=== PATIENT | female | born 1980 | race Caucasian/White ===

== ENCOUNTER 2020-06-22 12:19 | Emergency (ER) | payer OTHER ==
--- NOTE | 2020-06-22 12:23 | PDOC ---
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 She states that she has noticed that the right side of her mouth was drooping. Denies headache, rash. She states she had bynum's palsy when she was 17, but the symptoms were much more severe. Current symptoms have been improving. No OCP use, no history of blood clots. Past History - Medical History Allergies/Adverse Reactions: Allergies Allergy/AdvReac Type Severity Reaction Status Date / Time No Known Allergies Allergy Unverified 06/22/20 12:22 Home Medications: Ambulatory Orders Oxycodone HCl/Acetaminophen [Percocet 10-325 mg Tablet] 1 each PO TID 06/22/20 Review of Systems - Review of Systems Able to Perform ROS?: Yes Comments:: GENERAL/CONSTITUTIONAL: No fever or chills. No weakness. HEAD, EYES, EARS, NOSE AND THROAT: No change in vision. No ear pain or discharge. No sore throat. +R eye tearing. NEUROLOGIC: No headache, vertigo, loss of consciousness, or change in strength/sensation. ENDOCRINE: No increased thirst. No abnormal weight change. HEMATOLOGIC/LYMPHATIC: No anemia, easy bleeding, or history of blood clots. ALLERGIC/IMMUNOLOGIC: No hives or skin allergy. *Physical Exam - Physical Exam GENERAL: Awake, alert, and fully oriented, in no acute distress HEAD: No signs of trauma EYES: PERRLA, EOMI, sclera anicteric, conjunctiva clear. R eye fluorescein stain- no abnormal uptake. ENT: Auricles normal inspection, hearing grossly normal, nares patent, oropharynx clear without exudates. Moist mucosa NECK: Normal ROM, supple, no lymphadenopathy, JVD, or masses LUNGS: Breath sounds equal, clear to auscultation bilaterally. No wheezes, and no crackles HEART: Regular rate and rhythm, normal S1 and S2, no murmurs, rubs or gallops ABDOMEN: Soft, nontender, normoactive bowel sounds. No guarding, no rebound. No masses EXTREMITIES: Normal range of motion, no edema. No clubbing or cyanosis. No cords, erythema, or tenderness NEUROLOGICAL: Cranial nerves II through XII grossly intact. Normal speech, normal gait. Motor and sensation intact SKIN: Warm, dry, normal turgor, no rashes or lesions noted. Medical Decision Making - Medical Decision Making Pt presented me with a photo of her eyes when her symptoms were worse (they have improved now), and she did appear to have mild asymmetry. Currently, facial nerve function intact. No droop, no ptosis. No rash. Neurologically intact. This may have been bynum's palsy based on her description, but as her symptoms have resolved, will not pursue this further. Counseled her to return to the ER if the symptoms return. Discharge - Discharge Information Problems reviewed: Yes Clinical Impression/Diagnosis: Bynum's palsy Condition: Stable Disposition: HOME - Admission No - Follow up/Referral - Patient Discharge Instructions Patient Printed Discharge Instructions: DI for [place] [facility] - Post Discharge Activity
[2020-06-22] MEDS ORDERED: TETRACAINE 0.5% HCL 0.6ML DROPPER.BOTTLE OD ONE (12:25)
[2020-06-22] MEDS ORDERED: FLUORESCEIN NA 1 EA STRIP OD ONE (12:25)
[2020-06-22 12:32] VITALS: BP 113/65; PULSE 99; TEMP 99; BMI 24.5
[2020-06-22] MEDS ORDERED: FLUORESCEIN NA 1 EA STRIP ONE (12:51)
[2020-06-22] MEDS ORDERED: TETRACAINE 0.5% OPHTH SOLN 2 ML BOTTLE ONE (12:51)
--- OUTSIDE RECORDS SUMMARY | 2020-06-22 14:13 | XMS ---
:1980 [facility] Care Team Providers Name Role Phone HILDA SCHAEFER MD Unavailable Unavailable SILVANO, A MD Unavailable Unavailable SILVANO, A MD Unavailable Unavailable SILVANO, A MD Unavailable Unavailable SILVANO, A MD Unavailable Unavailable SILVANO, A MD Unavailable Unavailable SILVANO, A MD Unavailable Unavailable SILVANO, A MD Unavailable Unavailable SILVANO, A MD Unavailable Unavailable SILVANO, A MD Unavailable Unavailable SILVANO, A MD Unavailable Unavailable SILVANO, A MD Unavailable Unavailable SILVANO, A MD Unavailable Unavailable SILVANO, A MD Unavailable Unavailable SILVANO, A MD Unavailable Unavailable SILVANO, A MD Unavailable Unavailable SILVANO, A MD Unavailable Unavailable SILVANO, A MD Unavailable Unavailable SILVANO, A MD Unavailable Unavailable SILVANO, A MD Unavailable Unavailable SILVANO, A MD Unavailable Unavailable SILVANO, A MD Unavailable Unavailable SILVANO, A MD Unavailable Unavailable RHONDA CANELA Unavailable Unavailable Re-disclosure Warning The records that you are about to access may contain information from federally- assisted alcohol or drug abuse programs. If such information is present, then the following federally mandated warning applies: This information has been disclosed to you from records protected by federal confidentiality rules (42 CFR part 2). The federal rules prohibit you from making any further disclosure of this information unless further disclosure is expressly permitted by the written consent of the person to whom it pertains or as otherwise permitted by 42 CFR part 2. A general authorization for the release of medical or other information is NOT sufficient for this purpose. The Federal rules restrict any use of the information to criminally investigate or prosecute any alcohol or drug abuse patient.The records that you are about to access may contain highly sensitive health information, the redisclosure of which is protected by Article 27-F of the [facility] Public Health law. If you continue you may haveaccess to information: Regarding HIV / AIDS; Provided by facilities licensed or operated by the [facility] Office of Mental Health; or Provided by the [facility] Office for People With Developmental Disabilities. If such information is present, then the following [facility] mandated warning applies: This information has been disclosed to you from confidential records which are protected by state law. State law prohibits you from making any further disclosure of this information without the specific written consent of the person to whom it pertains, or as otherwise permitted by law. Any unauthorized further disclosure in violation of state law may result in a fine or skilled nursing sentence or both. A general authorization for the release of medical or other information is NOT sufficient authorization for further disclosure. Allergies and Adverse Reactions Type Description Substance Reaction Status Data Source(s ) Food allergy No Known Food No Known [facility] Drug allergy No Known Drug [facility] Drug allergy No Known Allergies No Known [facility] Allergies [facility] Care [facility] Encounters Encounter Providers Location Date Indications Data Source(s ) Outpatient Attender: 06/18/2019 M51.26 M96.1 [facility] ROLA, 06:00:00 AM Health Care ZVIAdmitter: [employer] [facility] Reymundo CANELAer: HILDA SCHAEFER MD M51.26 M96.1 Outpatient Attender: ROLA, 04/10/2019 12:00:00 M51.26 [facility] ZVIAdmitter: HILARY CANELA [facility] ZVIReferrer: HILDA SCHAEFER MD M51.26 Insurance Providers Payer name Policy type Policy ID Covered Covered alliance party's Policy P guido / Coverage alliance party ID relationship to [place] Inf ormation type dyer MEDICARE [id number] SP [id number] SELF PAY SP INSURANCE Problems, Conditions, and Diagnoses Code Display Name Description Problem Type Effective Data Sour ce(s) Dates M96.1 Postlaminectomy POSTLAMINECTOMY Diagnosis 06/18/2019 [place] syndrome, not SYNDROME, NOT 06:00:00 AM [facility] elsewhere ELSEWHERE EDT Care classified CLASSIFIED [facility] M51.26 Other OTHER Diagnosis 06/18/2019 [place] intervertebral disc INTERVERTEBRAL DISC 06:00:0 0 AM [facility] displacement, DISPLACEMENT, EDT Care lumbar region LUMBAR REGION Corporat ion
== END 2020-06-22 13:01 | disposition home or self-care (01) ==
LOC: FER 12:19
DX: G51.0 Bell's palsy (principal)
CPT/HCPCS: 99283-25